=== PATIENT | male | born 1975 | race African-American/Black ===

== ENCOUNTER 2020-02-19 12:10 | Day surgery (SDC) | payer OTHER ==
[2020-02-11 12:46] VITALS: BMI 25.9
[2020-02-19] MEDS ORDERED: MIDAZOLAM HCL 2 MG/2 ML SINGLE DOSE VIAL ONE (12:38)
[2020-02-19] MEDS ORDERED: PROPOFOL 20 ML ONE (12:38)
[2020-02-19] MEDS ORDERED: ceFAZolin SODIUM 1 GM VIAL ONE (13:38)
[2020-02-19] MEDS ORDERED: DEXAMETHASONE SOD PHOSPHATE 4 MG/1 ML VIAL ONE (13:45)
[2020-02-19] MEDS ORDERED: ONDANSETRON 4 MG/2 ML VIAL ONE ×2 (13:45→15:13)
[2020-02-19] MEDS ORDERED: ALBUTEROL SO4 HFA INHALER IH ONE (13:51)
[2020-02-19] MEDS ORDERED: BUPIVACAINE HCL/PF 0.25% (2.5MG/ML) 10 ML VIAL IJ ONE (14:48)
[2020-02-19] MEDS ORDERED: PROMETHAZINE HCL 25 MG/1 ML VIAL IVPUSH PRN (15:21)
[2020-02-19] MEDS ORDERED: oxyCODONE HCL 5 MG TABLET PO PRN ×2 (15:21)
[2020-02-19] MEDS ORDERED: ONDANSETRON 4 MG/2 ML VIAL IVPUSH PRN (15:21)
--- NOTE | 2020-02-19 15:36 | OP ---
DATE OF OPERATION: 02/19/2020 PREOPERATIVE DIAGNOSIS: Right thumb ulnar collateral ligament tear. POSTOPERATIVE DIAGNOSIS: Right thumb ulnar collateral ligament tear. OPERATIVE PROCEDURE: Right thumb ulnar collateral ligament reconstruction with autograft tendon grafting. SURGEON: Sharona Porter MD MEDICAL STAFF PHYSICIAN: ASPEN Constantino ANESTHESIA: General. COMPLICATIONS: None. ESTIMATED BLOOD LOSS: Minimal. INDICATIONS FOR PROCEDURE: The patient is a 45-year-old male with the above finding, indicated for operative treatment. Risks, benefits and alternatives were discussed with him at length and proper informed consent was obtained. PROCEDURE: After proper identification of patient and correct operative site, patient was brought to the operating room, placed supine on the table. All bony prominences well padded. General anesthesia was given. Right upper extremity was prepped and draped in the usual sterile fashion. A well-padded tourniquet was placed over the sterile prep. Esmarch bandage to exsanguinate right upper extremity. Tourniquet was inflated to 250 mmHg. Thumb UCL was found to be grossly unstable. A curvilinear incision was made over the ulnar aspect of the thumb MP joint. This was over the patient's prior incision. Incision was taken sharply through skin with blunt dissection through the subcutaneous tissue. Abundant scar tissue was found throughout the area. The extensor mechanism was carefully freed as were any crossing neurovascular structures. The adductor aponeurosis was divided from the extensor mechanism and elevated off the ulnar aspect of the joint. An almost absent capsule and ulnar collateral ligament were identified. This was just a very faint sheet of tissue that was having no stabilizing force. This was debrided. There was some thickened tissue at the neck of the metacarpal consistent with an old collateral ligament. Guidewires were placed into the thumb proximal phalanx and metacarpal neck and over-reamed with an Arthrex reamer. Since there was no tissue apparent, a graft was harvested. This was done through 2 small incisions with the palmaris longus tendon being harvested atraumatically. These incisions were repaired with 5-0 fast-absorbing plain gut suture. The graft was then whipstitched and secured to the proximal phalanx and metacarpals using an Arthrex SwiveLock anchor also loaded with an Arthrex SutureTape suture for a ligament augmentation InternalBrace type repair. This provided secure stable fixation. The tissue that was remaining on the metacarpal neck was oversewn on top of this to neaten up and augment the repair as well. There was no instability at this point. Thumb MP motion was from approximately 0 to 45 degrees. There was no tension on the repair. Of note, there was mild arthrosis of the dorsal ulnar aspect of the metacarpal head. The wound was repaired in layers including the adductor aponeurosis using 4-0 Vicryl and 4-0 Monocryl suture. Steri-Strips and sterile dressings were applied. Thumb spica splint was placed. Patient was reversed from anesthesia, brought to the recovery room in stable condition. He tolerated the procedure well. Juan Gunter, the tutoring assistant, was integral throughout this procedure. The procedure could not have been performed without a skilled operative tutoring assistant. He was especially integral in holding reduction and retracting vital structures while the graft was placed. SHARONA PORTER M.D. [id number]
[2020-02-19] MEDS ORDERED: ACETAMINOPHEN 325 MG TABLET (FP) ONE (15:46)
[2020-02-19 16:45] VITALS: TEMP 97.8
[2020-02-19 17:08] VITALS: BP 128/85
[2020-02-19 17:46] VITALS: PULSE 60
== END 2020-02-19 17:30 | disposition home or self-care (01) ==
LOC: FASU 12:10
PROVIDERS: ATTEND Orthopaedic Surgery Hand Surgery
PROC: 0MU Bursae and Ligaments, Supplement (ICD-10-PCS; principal; 2020-02-19 13:30)
DX: S63.641A Sprain of metacarpophalangeal joint of right thumb, initial encounter (principal); X58.XXXA Exposure to other specified factors, initial encounter; Y93.9 Activity, unspecified; Y92.9 Unspecified place or not applicable
CPT/HCPCS: 94760